=== PATIENT | female | born 1965 | race Two or more races ===

== ENCOUNTER → 2024-07-22 | Emergency (ER) | payer OTHER ==
[~2024-07-22] VITALS: Ht 160 cm; Wt 77.1 kg
[~2024-07-22] MED LIST: KETOROLAC TROMETHAMINE 30 MG VIAL IM STA
== END | disposition home or self-care (01) ==
LOC: ER 06:57
DX: M25.562 Pain in left knee (principal); Z88.0 Allergy status to penicillin; Z88.8 Allergy status to other drugs, medicaments and biological substances